=== PATIENT | male | born 1970 | race American Indian/Alaskan Native ===

== ENCOUNTER 2020-03-16 14:12 | Emergency (ER) | payer SELFPAY ==
[2020-03-16] MEDS ORDERED: DEXTROSE 50% IN WATER (25GM) 50 ML SYRINGE IV ONE ×3 (14:18)
[2020-03-16 14:52] LABS: Hematocrit 43.4 % (35.5-45.6); Hemoglobin 14.2 gm/dl (11.8-15.2); Mean Corpuscular HGB Conc 33 % (32-34); Mean Corpuscular Volume 82 fl (84-94); Platelet Count 267 K/mm3 (140-440); Red Blood Count 5.27 M/mm3 (3.65-5.03)
[2020-03-16 15:04] LABS: BUN/Creatinine Ratio 13; Blood Urea Nitrogen 15 mg/dL (9-20); Calcium 8.7 mg/dL (8.4-10.2); Hemolysis Index 10
[2020-03-16 16:33] LABS: Basophils % (Manual) 0 % (0.0-1.8); Eosinophils % (Manual) 0 % (0.0-4.3); Total Cells Counted 100
[2020-03-16 16:34] LABS: Large Platelets Rare
[2020-03-16 16:35] LABS: Ovalocytes Rare; Platelet Estimate Consistent w Auto
--- NOTE | 2020-03-16 16:56 | Emergency Department Report ---
ED General Adult HPI - General Chief complaint: Hypoglycemia Stated complaint: HYPOGLYCEMIA Time Seen by Provider: 03/16/20 14:17 Source: EMS Mode of arrival: Stretcher Limitations: No Limitations - History of Present Illness Initial comments: Patient is a 50-year-old F Romanian male with a past medical history of hypertension and diabetes who is presenting with hypoglycemia. Patient was at a DOT physical. Likely did not eat this morning said he can be n.p.o. and by time he got to the [employer] physical an hour later he started becoming altered and diap horetic. When paramedics arrived patient's blood glucose was 27. They were unable to establish IV in the field and brought the patient here for evaluation. Patient is altered and unable to give any additional history at this time. Severity scale (0 -10): 0 ED Review of Systems ROS: Stated complaint: HYPOGLYCEMIA Other details as noted in HPI Comment: All other systems reviewed and negative ED Past Medical Hx - Past Medical History Hx Diabetes: Yes - Social History Smoking Status: Unknown if ever smoked ED Physical Exam - General Limitations: No Limitations General appearance: alert - Head Head exam: Present: atraumatic, normocephalic - Eye Eye exam: Present: normal appearance, PERRL, EOMI - ENT ENT exam: Present: normal orophraynx, mucous membranes moist - Neck Neck exam: Present: normal inspection - Respiratory Respiratory exam: Present: normal lung sounds bilaterally. Absent: respiratory distress, wheezes, rales, rhonchi - Cardiovascular Cardiovascular Exam: Present: regular rate, normal rhythm, normal heart sounds. Absent: systolic murmur, diastolic murmur, rubs, gallop - GI/Abdominal GI/Abdominal exam: Present: soft, normal bowel sounds. Absent: distended, tenderness, guarding, rebound - Rectal Rectal exam: Present: deferred - Extremities Exam Extremities exam: Present: normal inspection - Back Exam Back exam: Present: normal inspection - Neurological Exam Neurological exam: Present: alert, oriented X3 - Psychiatric Psychiatric exam: Present: normal affect, normal mood - Skin Skin exam: Present: warm, dry, intact, normal color. Absent: rash ED Course Vital Signs 03/16/20 03/16/20 03/16/20 14:35 15:17 15:24 Pulse Rate 70 80 Respiratory 16 18 18 Rate Blood Pressure 140/72 Blood Pressure 140/86 [Left] O2 Sat by Pulse 99 100 98 Oximetry 03/16/20 15:47 Pulse Rate 68 Respiratory 18 Rate Blood Pressure Blood Pressure 132/70 [Left] O2 Sat by Pulse 99 Oximetry ED Medical Decision Making - Lab Data Result diagrams: 03/16/20 14:26 03/16/20 14:26 Lab Results 03/16/20 03/16/20 03/16/20 Range/Units 14:26 14:26 15:19 WBC 8.9 (4.5-11.0) K/mm3 RBC 5.27 H (3.65-5.03) M/mm3 Hgb 14.2 (11.8-15.2) gm/dl Hct 43.4 (35.5-45.6) % MCV 82 L (84-94) fl MCH 27 L (28-32) pg MCHC 33 (32-34) % RDW 15.0 (13.2-15.2) % Plt Count 267 (140-440) K/mm3 [place] % (Auto) Clipping Marker Add Manual Diff Complete Total Counted 100 Seg Neuts % (Manual) 80.0 H (40.0-70.0) % Band Neutrophils % 0 % Lymphocytes % (Manual) 9.0 L (13.4-35.0) % Reactive Lymphs % (Man) 0 % Monocytes % (Manual) 11.0 H (0.0-7.3) % Eosinophils % (Manual) 0 (0.0-4.3) % Basophils % (Manual) 0 (0.0-1.8) % Metamyelocytes % 0 % Myelocytes % 0 % Promyelocytes % 0 % Blast Cells % 0 % Nucleated RBC % Not Reportable Seg Neutrophils # Man 7.1 (1.8-7.7) K/mm3 Band Neutrophils # 0.0 K/mm3 Lymphocytes # (Manual) 0.8 L (1.2-5.4) K/mm3 Abs React Lymphs (Man) 0.0 K/mm3 Monocytes # (Manual) 1.0 H (0.0-0.8) K/mm3 Eosinophils # (Manual) 0.0 (0.0-0.4) K/mm3 Basophils # (Manual) 0.0 (0.0-0.1) K/mm3 Metamyelocytes # 0.0 K/mm3 Myelocytes # 0.0 K/mm3 Promyelocytes # 0.0 K/mm3 Blast Cells # 0.0 K/mm3 WBC Morphology Not Reportable Hypersegmented Neuts Not Reportable Hyposegmented Neuts Not Reportable Hypogranular Neuts Not Reportable Smudge Cells Not Reportable Toxic Granulation Not Reportable Toxic Vacuolation Not Reportable Dohle Bodies Not Reportable Pelger-Huet Anomaly Not Reportable Rossy Rods Not Reportable Platelet Estimate Consistent w auto Clumped Platelets Not Reportable Plt Clumps, EDTA Not Reportable Large Platelets Rare Giant Platelets Not Reportable Platelet Satelliting Not Reportable Plt Morphology Comment Not Reportable RBC Morphology Not Reportable Dimorphic RBCs Not Reportable Polychromasia Not Reportable Hypochromasia Not Reportable Poikilocytosis Not Reportable Anisocytosis Not Reportable Microcytosis Not Reportable Macrocytosis Not Reportable Spherocytes Not Reportable Pappenheimer Bodies Not Reportable Sickle Cells Not Reportable Target Cells Not Reportable Tear Drop Cells Not Reportable Ovalocytes Rare Helmet Cells Not Reportable [place] Bodies Not Reportable [place] Rings Not Reportable Deary Cells Not Reportable Bite Cells Not Reportable Crenated Cell Not Reportable Elliptocytes Not Reportable Acanthocytes (Spur) Not Reportable Rouleaux Not Reportable Hemoglobin C Crystals Not Reportable Schistocytes Not Reportable Malaria parasites Not Reportable Dani Bodies Not Reportable Hem Pathologist Commnt No Sodium 131 L (137-145) mmol/L Potassium 4.2 (3.6-5.0) mmol/L Chloride 93.9 L (98-107) mmol/L Carbon Dioxide 25 (22-30) mmol/L Anion Gap 16 mmol/L BUN 15 (9-20) mg/dL Creatinine 1.2 (0.8-1.3) mg/dL Estimated GFR > 60 ml/min BUN/Creatinine Ratio 13 % Glucose 340 H (75-100) mg/dL POC Glucose 194 H (70-105) Calcium 8.7 (8.4-10.2) mg/dL - Medical Decision Making IV was able to be established by our nursing staff on the patient's arrival. Was given amp of D50 and started having some improvement of his mental status but the improvement seemed very slow therefore he was given an additional amp. Patient did return back to baseline within approximately 5 minutes. Watch the patient and he was able to eat we checked the sugar again and the patient is blood glucose is remaining with him acceptable limits. Patient be discharged home. Critical care attestation.: If time is entered above; I have spent that time in minutes in the direct care of this critically ill patient, excluding procedure time. ED Disposition Clinical Impression: Hypoglycemia, Insulin reaction Disposition: DC-01 TO HOME OR SELFCARE Is pt being admited?: No Does the pt Need Aspirin: No Condition: Stable Instructions: Diabetic Hypoglycemia (ED) Referrals: GEORGE FOSTER MD [Referring] - 3-5 Days Time of Disposition: 16:57
[2020-03-16 17:30] VITALS: BP 159/104
== END 2020-03-16 17:25 | disposition home or self-care (01) ==
LOC: ED 14:12
DX: E11.649 Type 2 diabetes mellitus with hypoglycemia without coma (principal); T38.3X5A Adverse effect of insulin and oral hypoglycemic [antidiabetic] drugs, initial encounter; Y92.89 Other specified places as the place of occurrence of the external cause
CPT/HCPCS: 36415; 80048; 82962; 85007; 85025; 96374; 96376